=== PATIENT | female | born 2005 | race Caucasian/White ===

== ENCOUNTER 2024-04-10 21:09 | Emergency (ER) | payer BC, SELFPAY ==
[2024-04-10 21:09] VITALS: BMI 22.6
[2024-04-10 21:11] VITALS: BP 134/92
[2024-04-10 21:38] LABS: % Basophils 0.5 % (0-2); % Eosinophils 1.1 % (0-6); % Immature Granulocytes 0.3 % (0-0.5); % Lymphocytes 27.6 % (20.5-51.1); % Monocytes 7.6 % (1.7-9.3); % Neutrophils 62.9 % (42.2-75.2); Absolute Basophils 0.1 10^3/uL (0-0.2); Absolute Eosinophils 0.1 10^3/uL (0-0.7); Absolute Lymphocytes 2.9 10^3/uL (1.2-3.4); Absolute Monocytes 0.8 10^3/uL (0.1-0.6); Absolute Neutrophils 6.7 10^3/uL (1.4-6.5); Hematocrit 38.9 % (37.0-47.0); Hemoglobin 13.8 g/dL (12.0-16.0); Mean Corp Hgb Conc. 35.5 g/dL (33.0-37.0); Mean Corpuscular Hgb 30.2 pg (27.0-31.0); Mean Corpuscular Volume 85.1 fL (81.0-99.0); Mean Platelet Volume 10.2 fL (7.4-10.4); Nucleated Red Blood Cells % 0 %; Platelet Count 310 10^3/uL (130-400); Red Blood Cell Count 4.57 10^6/uL (4.20-5.40); Red Cell Dist. Width 12.2 % (11.5-14.5); White Blood Cell Count 10.6 10^3/uL (4.8-10.8)
[2024-04-10 21:54] LABS: ALT (SGPT) 22 U/L (0-35); AST (SGOT) 42 U/L (14-36); Albumin 4.6 g/dl (3.5-5.0); Alkaline Phosphatase 115 U/L (38-126); Blood Urea Nitrogen 13 mg/dl (7-17); Calcium 9.8 mg/dl (8.4-10.2); Carbon Dioxide 28 mmol/L (22-30); Chloride 103 mmol/L (98-107); Glucose 68 mg/dl (70-99); Potassium 3.8 mmol/L (3.5-5.1); Sodium 139 mmol/L (135-145); Total Bilirubin 0.6 mg/dl (0.2-1.3); Total CK 604 U/L (30-135); Total Protein 7.5 g/dl (6.3-8.2); eGFR > 60.00
[2024-04-10 22:15] LABS: CKMB 5.9 ng/ml (0.0-2.4)
--- NOTE | 2024-04-10 22:39 | ED.GENMED ---
History of Present Illness
General
Chief Complaint: Dehydration Symptoms
Source: patient
Exam Limitations: none
Time Seen by Provider: 04/10/24 22:02
History of Present Illness
History of Present Illness:
This is a 18 year old female that come sin with c/o just feeling tired and hot. 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 States that today they were doing life skills worker testing today from 9-5pm. States that she took her Adderall today to help her focus to
take the test. State that she felt tired and when she went into the air conditioning she did not feel cold. States that she laid down on the floor as she felt woozy. States that they had to do 40 laps, Tread water for 2 min without using their arms,
Lift a brick from the bottom of the pool, and then did life skills worker saves all day. States that she had a headache and her arms just feel sore. Denies any fever, chills, chest pain, SOB, abd pain, nausea, vomiting, diarrhea, dizziness, urinary burning.
Past History
Past History
ED Past Medical History: Other (ADHD); Negative Asthma, HTN, Hypercholesterolemia or NIDDM
ED Past Surgical History: Gynecological (IUD)
Social History
Tobacco: Non-smoker
Alcohol: Occasional
Drug: Marijuana
Personal: Single
Living: with family
Review of Systems
Review of Systems
All Other Systems: ROS reviewed and negative except as documented in HPI and ROS
Constitutional: Reports no symptoms; Denies fever or chills
EENT: Reports no symptoms
Respiratory: Reports no symptoms; Denies cough or trouble breathing
Cardiac: Reports no symptoms; Denies chest pain
ABD/GI: Reports no symptoms; Denies abdominal pain, nausea, vomiting or diarrhea
: Reports no symptoms; Denies dysuria, frequency or urgency
Musculoskeletal: Reports other (arms feel sore)
Skin: Reports no symptoms
Neurological: Reports headache; Denies dizzy
Psychiatric: Reports no symptoms
Phy Exam
General Physical Exam
General Presentation: no apparent distress
General age: appears stated age
General Skin: warm and dry
General Habitus: normal
General Mental: alert
General Hydration: appears well hydrated
ENT Exam
ENT Exam: TM's normal, pharynx normal and neck supple
Eye Exam
Eye Exam: EOMI
Cardiovascular Exam
Cardiovascular Exam: regular rate/rhythm, no edema, no murmur and normal peripheral pulses
Pulmonary Exam
Pulmonary Exam: lungs clear, no respiratory distress, no rales, chest non tender, no crackles, no rhonchi, no wheezing and no cough
Gastrointestinal Exam
Gastrointestinal Exam: normal bowel sounds, non tender, soft, no organomegaly, no pulsatile mass and non distended
Musculoskeletal Exam
Musculoskeletal Exam: full ROM and no edema
Skin Exam
Skin Exam: normal color, warm/dry, no rash and no petechia
Course
Orders/Labs/Results
Orders:
Orders
04/10/24 21:32
CBC/With Diff [Complete Blood Count/With Diff] Urgent
CKMB [CPK Isoenzyme] Urgent
CMP [Comprehensive Metabolic Panel] Urgent
04/10/24 22:38
0.9% Sodium Chloride 500 ml [Nss] 500 ml IV BOLUS
Abnormal Lab Results
04/10/24
21:32
Absolute Neuts (auto) 6.7 H 10^3/uL
(1.4-6.5)
Absolute Monos (auto) 0.8 H 10^3/uL
(0.1-0.6)
Glucose 68 L mg/dl
(70-99)
AST 42 H U/L
(14-36)
Total Creatine Kinase 604 H U/L
(30-135)
CK-MB (CK-2) 5.9 H ng/ml
(0.0-2.4)
04/10/24 21:32
04/10/24 21:32
Hypoglycemia, AST slightly elevated. CPK slightly elevated.
Vital Signs
Initial and Last Documented VS:
Initial Vital Signs
Temp Pulse Resp BP Pulse Ox
98.6 F 79 20 134/92 99
04/10/24 21:11 04/10/24 21:11 04/10/24 21:11 04/10/24 21:11 04/10/24 21:11
Last Documented Vital Signs
Temp Pulse Resp BP Pulse Ox
98.6 F 61 17 107/69 98
04/10/24 21:11 04/10/24 22:57 04/10/24 22:57 04/10/24 22:57 04/10/24 22:57
MDM/Problems Addressed
Differential Diagnosis Includes:
Dehydration. Hypoglycemia,
MDM/Problems Addressed:
This is a 18 year old female that comes in with c/o feeling tired and hot. States that she has been doing life skills worker testing from 9-5pm. States that she has not really eaten or drank much.
Will give IV fluids. check labs and feed.
Patient was given food to eat and now patient wants to leave. Will discharge.
Chronic conditions affecting care:
NA
Acute Exacerbation and/or Progression of Chronic Illness:
NA
*Pulse Oximetry
Patient hypoxic: no
*EKG
Interpreted by ED Provider?: NA
Rate: EKG- N/A
*Mill Hand Interpretation
Rate: Mill Hand- N/A
*Critical Care Note
Total Time (30-74mins, 75-104mins- exclusive of procedures): Not Applicable
ED Attending Note
-
Portions of this chart may have been created with voice recognition software.� Occasional wrong word or��sound alike� substitutions may have occurred due to the inherent limitations of voice recognition software.
Discharge Plan
Departure
Patient Disposition: Home (Routine Discharge)
Date of Disposition: 04/10/24
Time of Disposition: 23:24
Patient with high blood pressure during this ER visit?: No
Condition: Good
Covid-19: Not Applicable
Discharge Problem:
Dehydration, Heat exhaustion
Instructions: Dehydration, Adult (DC), Heat Exhaustion and Heat Stroke (DC)
Referrals:
Montana Guzmán, DO [Family Provider] - Call in 1-3 days for appt
Activity Restrictions/Additional Instructions:
As discussed your blood work shows that your liver enzymes is very slightly elevated and that you started to have some muscle brake down from all the Exercising. Please increase your water intake to 8-8oz glasses daily. Eat a well balanced diet. You
have been given IV fluids here. Follow up with the family doctor for recheck. IF YOU HAVE ANY DARK COLORED URINE OR YOU HAVE ANY OTHER CONCERNS PLEASE RETURN TO THE EMERGENCY ROOM
Interventions
Interventions:
*Risk Screen - Suicide Last Done: 04/10/24 21:11
*General Assessment Last Done: 04/10/24 21:11
*Neglect/Abuse Screening Last Done: 04/10/24 21:11
ED- Cardiac Assessment Last Done: 04/10/24 21:36
ED- Neurological Assessment Last Done: 04/10/24 21:36
ED- Pulmonary Assessment Last Done: 04/10/24 21:36
Discharge Date and Time
Print Language: MAORI
[2024-04-10] MEDS: NSS 500 IV (22:44)
[2024-04-10 22:57] VITALS: BP 107/69
== END 2024-04-10 23:35 | disposition home or self-care (01) ==
LOC: EMR 21:09
PROVIDERS: EMERGENCY PHYSICIAN Emergency Medicine; FAMILY PHYSICIAN Pediatrics
DX: E86.0 Dehydration (principal); T67.5XXA Heat exhaustion, unspecified, initial encounter; X30.XXXA Exposure to excessive natural heat, initial encounter; F90.9 Attention-deficit hyperactivity disorder, unspecified type
CPT/HCPCS: 99283; 96360; 80053; 82550; 82553; 85025